=== PATIENT | male | born 1970 | race Caucasian/White ===

== ENCOUNTER 2016-06-25 13:04 | Emergency (ER) | payer MEDICAID ==
[2016-06-25 14:20] LABS: APPEARANCE CLEAR (CLEAR); BILIRUBIN NEGATIVE (NEGATIVE); COLOR YELLOW (YELLOW); GLUCOSE NEGATIVE (NEGATIVE); KETONE NEGATIVE (NEGATIVE); LEUKOCYTE ESTERASE TRACE (NEGATIVE); NITRITE NEGATIVE (NEGATIVE); PROTEIN NEGATIVE (NEGATIVE); SPECIFIC GRAVITY 1.015 (1.005-1.020); UROBILINOGEN NORMAL (NORMAL)
[2016-06-25 14:22] LABS: BACTERIA FEW /hpf (NONE SEEN); EPITHELIAL CELLS 0-5 /hpf (0-5); MUCUS <1+ /lpf (NONE SEEN); RED CELLS - URINE 0-5 /hpf (0-5); WHITE CELLS - URINE 0-5 /hpf (0-5)
[2016-06-27 22:11] LABS: CHLAMYDIA TRACHOMATIS, NAA Negative (Negative)
== END 2016-06-25 16:20 | disposition home or self-care (01) ==
LOC: D.ER 13:04
PROVIDERS: Family Medicine
DX: N45.1 Epididymitis (principal); F17.200 Nicotine dependence, unspecified, uncomplicated

== ENCOUNTER 2016-12-22 14:10 | Emergency (ER) | payer MEDICAID ==
[2016-12-27] MEDS ORDERED: HYDROCODONE-APA1 TAB PO (07:53)
[2016-12-27] MEDS ORDERED: VOLTAREN75 MG PO (07:53)
[2016-12-27] MEDS ORDERED: NEURONTIN 300300 MG PO (07:54)
[2016-12-27] MEDS ORDERED: OMEPRAZOLE20 M1 PO (07:54)
[2016-12-27] MEDS ORDERED: BACLOFEN10 MG PO (07:54)
== END 2016-12-22 17:05 | disposition home or self-care (01) ==
LOC: D.ER 14:10
DX: S62.304A Unspecified fracture of fourth metacarpal bone, right hand, initial encounter for closed fracture (principal); S62.306A Unspecified fracture of fifth metacarpal bone, right hand, initial encounter for closed fracture; X58.XXXA Exposure to other specified factors, initial encounter; Y93.89 Activity, other specified; Y92.019 Unspecified place in single-family (private) house as the place of occurrence of the external cause; S69.91XA Unspecified injury of right wrist, hand and finger(s), initial encounter; F17.200 Nicotine dependence, unspecified, uncomplicated

== ENCOUNTER 2016-12-23 00:55 | Emergency (ER) | payer MEDICAID ==
[2016-12-27] MEDS ORDERED: VOLTAREN75 MG PO (07:53)
[2016-12-27] MEDS ORDERED: HYDROCODONE-APA1 TAB PO (07:53)
[2016-12-27] MEDS ORDERED: NEURONTIN 300300 MG PO (07:54)
[2016-12-27] MEDS ORDERED: BACLOFEN10 MG PO (07:54)
[2016-12-27] MEDS ORDERED: OMEPRAZOLE20 M1 PO (07:54)
== END 2016-12-23 01:35 | disposition home or self-care (01) ==
LOC: D.ER 00:55
DX: S62.304A Unspecified fracture of fourth metacarpal bone, right hand, initial encounter for closed fracture (principal); S62.306A Unspecified fracture of fifth metacarpal bone, right hand, initial encounter for closed fracture; X58.XXXA Exposure to other specified factors, initial encounter; Y93.89 Activity, other specified; Y92.89 Other specified places as the place of occurrence of the external cause; F17.200 Nicotine dependence, unspecified, uncomplicated

== ENCOUNTER 2016-12-28 06:15 | Day surgery (SDC) | payer MEDICAID ==
[~2016-12-28] VITALS: Ht 175.3 cm; Wt 83.0 kg
[~2016-12-28 06:15] MED LIST: BACLOFEN10 MG PO; HYDROCODONE-APA1 TAB PO; NEURONTIN 300300 MG PO; OMEPRAZOLE20 M1 PO; VOLTAREN75 MG PO
[2016-12-28 08:58] VITALS: BP 113/71; Ht 175.3 cm; Wt 83.0 kg
[2016-12-28] MEDS ORDERED: HYDROCODONE-APA1 TAB PO (13:28)
--- NOTE | 2016-12-29 21:23 | OP ---
PATIENT NAME: PRABHU CHAMBERLAIN MEDICAL RECORD: [id number] :72 LOCATION:[facility] ADMISSION DATE: SURGEON: VILMA BALLESTEROS MD DATE OF OPERATION: 12/28/2016 PREOPERATIVE DIAGNOSIS: Fractured metacarpals of the right hand; the metacarpal neck, fourth finger and fifth finger. POSTOPERATIVE DIAGNOSIS: Fractured metacarpals of the right hand; the metacarpal neck, fourth finger and fifth finger. PROCEDURE: Closed reduction and splinting of above fracture. SURGEON: Vilma Ballesteros MD. ANESTHESIA: TIVA. COMPLICATIONS: None. OPERATIVE SUMMARY IN DETAIL: After obtaining the appropriate preoperative orthopedic surgery consent as well as anesthetic consultation, evaluation and clearance, the patient was brought to the operating room and placed on the operating table in supine position. After adequate TIVA anesthesia had been administered, reduction maneuver was performed in both the fifth and fourth finger under fluoroscopic guidance of what appeared to be good stable fixation. A well-molded splint was placed in ulnar gutter fashion and held in place while it was allowed to harden. Post-reduction films were taken and showed good position and placement with near anatomic sabianism of the alignment of the metacarpal fractures. Having completed this, the patient was awakened, taken to recovery room in stable condition. All final needle and sponge counts were correct. TRANSINT:[id number] Voice Confirmation ID: [id number] DOCUMENT ID: [id number] VILMA BALLESTEROS MD at 2123 CC: [id number] DICTATION DATE: 12/28/16 1330 [facility] TRANSLATOR: 12/28/16 1551 [facility] 12/28/[id number] [id number]
== END 2016-12-28 15:20 | disposition home or self-care (01) ==
LOC: D.OPS 06:15 → D.PAN 11:45 → D.OPS 11:45 → D.PAN 12:00 → D.OPS 15:20 → D.PAN 15:45 → D.OPS 15:45
DX: S62.334A Displaced fracture of neck of fourth metacarpal bone, right hand, initial encounter for closed fracture (principal); S62.336A Displaced fracture of neck of fifth metacarpal bone, right hand, initial encounter for closed fracture; X58.XXXA Exposure to other specified factors, initial encounter; Z01.812 Encounter for preprocedural laboratory examination